=== PATIENT | female | born 1980 | race African-American/Black ===

== ENCOUNTER 2017-06-08 08:23 | Outpatient (CLI) | payer MEDICAID ==
[~2017-06-08 08:23] MED LIST: ACETAMINOPHEN 325 MG TABLET PO PRN; DIPHENHYDRAMINE HCL 50 MG/ML VIAL IV PRN; IRON DEXTRAN COMPLEX 25 MG in NORMAL SALINE 100 ML IV PRN; IRON DEXTRAN COMPLEX 25 MG in SYRINGE, DISPOSABLE, 1 EACH IV PRN; IRON DEXTRAN COMPLEX 975 MG in NORMAL SALINE 1000 ML 1,000 ML IV PRN; NORMAL SALINE 250 ML IV PRN
[2017-06-08 09:12] VITALS: BP 119/78
== END 2017-06-08 14:06 | disposition home or self-care (01) ==
LOC: II 08:23 → 5TH 08:26 → II 14:06
PROVIDERS: ATTEND Internal Medicine Hematology & Oncology
PROC: 3E033GC Introduction of Other Therapeutic Substance into Peripheral Vein, Percutaneous Approach (ICD-10-PCS; principal; 2017-06-08)
DX: D50.9 Iron deficiency anemia, unspecified (principal)
CPT/HCPCS: 96367; 96375; J3490 ×2; J1200; J1750; J7030; 96365; 96366